=== PATIENT | male | born 1980 | race Caucasian/White ===

== ENCOUNTER 2022-08-03 08:03 | Day surgery (SDC) | payer BC ==
[~2022-08-03 08:03] MED LIST: LACTATED RINGERS 1,000 ML IV SCH
[2022-08-03 08:59] VITALS: TEMP 98.9
[2022-08-03] MEDS ORDERED: PROPOFOL 10 MG/ML 20 ML VIAL IV ONE (09:34)
[2022-08-03] MEDS ORDERED: LIDOCAINE 2% INJ 20 MG/ML (2 ML VIAL) ONE (09:34)
--- NOTE | 2022-08-03 09:48 | P.GSHP ---
History of Present Illness H&P Date: 08/03/22 Chief Complaint: Change in bowel habits, constipation This a 42-year-old male been safe for colonoscopy. Patient is a change in bowel habits. He states that he has some PATIENT. Patient states he has a decreased caliber of the stool. Past Medical History Past Medical History: No Reported History History of Any Multi-Drug Resistant Organisms: None Reported Past Surgical History: Orthopedic Surgery Additional Past Surgical History / Comment(s): wrist surgery rt Past Anesthesia/Blood Transfusion Reactions: No Reported Reaction Smoking Status: Former smoker Medications and Allergies Home Medications Medication Instructions Recorded Confirmed Type No Known Home Medications 08/01/22 08/03/22 History Allergies Allergy/AdvReac Type Severity Reaction Status Date / Time No Known Allergies Allergy Verified 08/03/22 08:48 Surgical - Exam Vital Signs Temp Pulse Resp BP Pulse Ox 98.9 F 65 18 160/79 98 08/03/22 08:54 08/03/22 08:54 08/03/22 08:54 08/03/22 08:54 08/03/22 08:54 - General well developed, well nourished, no distress - Eyes PERRL - ENT normal pinna - Neck no masses - Respiratory normal expansion - Cardiovascular Rhythm: regular - Abdomen Abdomen: soft, non tender Assessment and Plan Assessment: History of change in bowel habits, constipation and change in caliber stool. Patient will undergo colonoscopy.
--- NOTE | 2022-08-03 09:58 | P.OP ---
Date of Procedure: 08/03/22 Preoperative Diagnosis: Constipation Change in bowel habits Change in caliber stool Postoperative Diagnosis: Normal colonoscopy Procedure(s) Performed: Colonoscopy Anesthesia: MAC Surgeon: Mckinley Garza Pathology: none sent Condition: stable Disposition: PACU Description of Procedure: PROCEDURE: The patient was placed on the endoscopy table in the lateral position. Digital rectal examination was performed which revealed no abnormalities. The prostate was symmetrical without nodules. Flexible colonoscope was then placed in the patient's anus and passed throughout the entire colon. The ileocecal valve was visualized. The cecum, ascending, transverse, descending and sigmoid colon were normal. The rectum was normal as well. There were no masses, polyps or diverticula noted in the entire colon. SUMMARY OF FINDINGS: Normal colonoscopy.
[2022-08-03 10:16] VITALS: BP 118/74; PULSE 62; RESP 17
== END 2022-08-03 11:12 | disposition home or self-care (01) ==
LOC: ORWHC2ENDO 08:03
PROVIDERS: ATTEND Surgery
DX: K59.00 Constipation, unspecified (principal); F12.90 Cannabis use, unspecified, uncomplicated; Z98.890 Other specified postprocedural states; Z87.891 Personal history of nicotine dependence
CPT/HCPCS: 45378; J2704; J2001